=== PATIENT | male | born 1990 | race Caucasian/White ===

== ENCOUNTER 2016-10-27 07:50 | Emergency (ER) | payer MEDICAID ==
[2016-10-27] MEDS ORDERED: DEXAMETHASONE 4 MG/ML VIAL ONE (08:41)
[2016-10-27] MEDS ORDERED: KETOROLAC 60 MG/2 ML VIAL IM ONE (08:41)
[2016-10-27] MEDS ORDERED: DUONEB INH ONE (09:07)
== END 2016-10-27 09:42 | disposition home or self-care (01) ==
LOC: ER 07:50
DX: M54.2 Cervicalgia (principal); M54.12 Radiculopathy, cervical region
CPT/HCPCS: 72050; 96372